=== PATIENT | female | born 1945 | race Hispanic/Latino ===

== ENCOUNTER 2023-11-23 15:06 | Outpatient (CLI) | payer OTHER | END 2023-11-23 15:07 | disposition home or self-care (01) | LOC: NAV RAD 15:06 | PROVIDERS: ATTEND Family Medicine | DX: M25.561 Pain in right knee (principal); M17.11 Unilateral primary osteoarthritis, right knee; M25.461 Effusion, right knee; M25.761 Osteophyte, right knee ==